=== PATIENT | female | born 1990 ===

== ENCOUNTER → 2017-07-23 | Outpatient (CLI) | payer OTHER ==
[~2017-07-23] MED LIST: ALBU90OI6 INH; DOCU100 PO; FLUSAL1005; IBUP800 PO; OXYACE5T PO
[2017-07-23 12:35] LABS: BASOPHILS ABSOLUTE AUTO 0.02 K/mm3 (0.00-0.23); BASOPHILS PERCENT AUTO 0 % (0-2); EOSINOPHILS PERCENT AUTO 3 % (0-6); Hematocrit 40.8 % (33.0-51.0); Hemoglobin 13.6 g/dL (11.5-16.0); IMMATURE GRAN ABSOLUTE AUTO 0.02 K/mm3 (0.00-0.10); IMMATURE GRAN PERCENT AUTO 0 % (0-1); LYMPHOCYTES ABSOLUTE AUTO 1.49 K/mm3 (0.84-5.20); LYMPHOCYTES PERCENT AUTO 21 % (21-46); MONOCYTES ABSOLUTE AUTO 0.46 K/mm3 (0.16-1.47); MONOCYTES PERCENT AUTO 6 % (4-13); Mean Corpuscular HGB 30.2 pg (26.0-34.0); Mean Corpuscular HGB Conc 33.3 g/dL (31.5-36.5); Mean Corpuscular Volume 91 fL (80-100); NEUTROPHILS ABSOLUTE AUTO 5.09 K/mm3 (1.96-9.15); NEUTROPHILS PERCENT AUTO 70 % (41-73); Platelet Count 268 K/mm3 (150-400); RDW Coefficient Variation 12.2 % (11.7-14.2); RDW Standard Deviation 40.1 fL (35.1-46.3); White Blood Cell Count 7.28 K/mm3 (4.00-11.30)
[2017-07-23 12:56] LABS: Source, Urine Clean Catch
[2017-07-23 13:34] LABS: Appearance, Urine Clear (Clear); Bilirubin, Urine Neg (Neg); Blood, Urine 1+ (Neg); Color, Urine Yellow (P-Yellow); Glucose Qualitative, Urine Neg (Neg); Ketones, Urine Neg (Neg); Leukocyte Esterase, Urine Neg (Neg); Nitrite, Urine Neg (Neg); Protein, Urine Neg (Neg); Specific Gravity, Urine 1.015 (1.003-1.022); Urobilinogen, Urine NORM (Normal)
[2017-07-23 13:46] LABS: Bacteria Few /hpf; Squamous Epithelial Cells Few /hpf (Few); White Blood Cells, Urine 0-2 /hpf (0-5)
== END ==
LOC: LAB SHORT 11:12 → OLS 11:12
PROVIDERS: Registered Nurse Community Health
DX: Z34.81 Encounter for supervision of other normal pregnancy, first trimester (principal)
CPT/HCPCS: 36415; 80055; 81001; 84443; 87086; 87389

== ENCOUNTER → 2017-08-02 | Outpatient (CLI) | payer OTHER ==
[2017-09-02 09:11] LABS: CHLAMYDIA TRACHOMATIS, NAA Negative (Negative); NEISSERIA GONORRHOEAE, NAA Negative (Negative)
== END ==
LOC: LAB 12:18 → LAB SHORT 12:18
PROVIDERS: Registered Nurse Community Health
DX: Z34.81 Encounter for supervision of other normal pregnancy, first trimester (principal)
CPT/HCPCS: 87491; 87591; G0123

== ENCOUNTER → 2017-12-21 | Outpatient (CLI) | payer OTHER ==
[2017-12-21 17:04] LABS: Hematocrit 33.6 % (33.0-51.0); Hemoglobin 11.1 g/dL (11.5-16.0)
== END ==
LOC: LAB UCHC 15:35 → LAB SHORT 15:35
PROVIDERS: Registered Nurse Community Health
DX: Z34.82 Encounter for supervision of other normal pregnancy, second trimester (principal)
CPT/HCPCS: 36415; 82950; 85014; 85018

== ENCOUNTER 2018-03-23 20:10 | Inpatient (IN) | payer OTHER ==
[~2018-03-23] VITALS: Ht 162.6 cm; Wt 98.6 kg
[2018-03-23 21:04] LABS: BASOPHILS ABSOLUTE AUTO 0.01 K/mm3 (0.00-0.23); BASOPHILS PERCENT AUTO 0 % (0-2); EOSINOPHILS ABSOLUTE AUTO 0.06 K/mm3 (0.00-0.68); EOSINOPHILS PERCENT AUTO 1 % (0-6); Hematocrit 39.2 % (33.0-51.0); Hemoglobin 12.8 g/dL (11.5-16.0); IMMATURE GRAN ABSOLUTE AUTO 0.03 K/mm3 (0.00-0.10); IMMATURE GRAN PERCENT AUTO 0 % (0-1); LYMPHOCYTES ABSOLUTE AUTO 1.26 K/mm3 (0.84-5.20); LYMPHOCYTES PERCENT AUTO 16 % (21-46); MONOCYTES ABSOLUTE AUTO 0.53 K/mm3 (0.16-1.47); MONOCYTES PERCENT AUTO 7 % (4-13); Mean Corpuscular HGB 28.2 pg (26.0-34.0); Mean Corpuscular HGB Conc 32.7 g/dL (31.5-36.5); Mean Corpuscular Volume 86 fL (80-100); Mean Platelet Volume 12.3 fL (9.1-12.4); NEUTROPHILS ABSOLUTE AUTO 5.84 K/mm3 (1.96-9.15); NEUTROPHILS PERCENT AUTO 76 % (41-73); Platelet Count 219 K/mm3 (150-400); RDW Coefficient Variation 13.8 % (11.7-14.2); RDW Standard Deviation 43.8 fL (35.1-46.3); Red Blood Cell Count 4.54 M/mm3 (3.80-5.20); White Blood Cell Count 7.73 K/mm3 (4.00-11.30)
[2018-03-25 05:37] LABS: BASOPHILS ABSOLUTE AUTO 0.03 K/mm3 (0.00-0.23); BASOPHILS PERCENT AUTO 0 % (0-2); EOSINOPHILS ABSOLUTE AUTO 0.03 K/mm3 (0.00-0.68); EOSINOPHILS PERCENT AUTO 0 % (0-6); Hematocrit 36.9 % (33.0-51.0); IMMATURE GRAN ABSOLUTE AUTO 0.03 K/mm3 (0.00-0.10); IMMATURE GRAN PERCENT AUTO 0 % (0-1); LYMPHOCYTES ABSOLUTE AUTO 1.51 K/mm3 (0.84-5.20); LYMPHOCYTES PERCENT AUTO 15 % (21-46); MONOCYTES ABSOLUTE AUTO 0.68 K/mm3 (0.16-1.47); MONOCYTES PERCENT AUTO 7 % (4-13); Mean Corpuscular HGB 28.4 pg (26.0-34.0); Mean Corpuscular HGB Conc 32.5 g/dL (31.5-36.5); Mean Corpuscular Volume 87 fL (80-100); Mean Platelet Volume 12.2 fL (9.1-12.4); NEUTROPHILS ABSOLUTE AUTO 7.62 K/mm3 (1.96-9.15); NEUTROPHILS PERCENT AUTO 77 % (41-73); Platelet Count 187 K/mm3 (150-400); RDW Standard Deviation 44.4 fL (35.1-46.3); Red Blood Cell Count 4.22 M/mm3 (3.80-5.20)
[2018-03-25] MEDS ORDERED: IBUP800 PO (13:16)
== END 2018-03-25 21:15 | disposition home or self-care (01) | DRG 807 ==
LOC: BC 20:10
PROVIDERS: Registered Nurse Community Health
PROC: 10E0XZZ Delivery of Products of Conception, External Approach (ICD-10-PCS; principal; 2018-03-24)
PROC: 0HQ9XZZ Repair Perineum Skin, External Approach (ICD-10-PCS; 2018-03-24)
PROC: 10907ZC Drainage of Amniotic Fluid, Therapeutic from Products of Conception, Via Natural or Artificial Opening (ICD-10-PCS; 2018-03-24)
PROC: 3E0P7VZ Introduction of Hormone into Female Reproductive, Via Natural or Artificial Opening (ICD-10-PCS; 2018-03-24)
PROC: 3E0234Z Introduction of Serum, Toxoid and Vaccine into Muscle, Percutaneous Approach (ICD-10-PCS; 2018-03-25)
DX: O48.0 Post-term pregnancy (principal); Z37.0 Single live birth; O70.0 First degree perineal laceration during delivery; Z3A.40 40 weeks gestation of pregnancy; Z23 Encounter for immunization
CPT/HCPCS: 36415; 82947; 85025; 90686; J1720; J1885; J2590; J7120

== ENCOUNTER 2018-05-13 06:04 | Day surgery (SDC) | payer OTHER ==
[~2018-05-13] VITALS: Ht 160 cm; Wt 92.7 kg
[~2018-05-13 06:04] MED LIST changes: +ALBU90OI61 INH; +FOLI1; +[UNRECOGNIZED DRUG - OTHER]
--- NOTE | 2018-05-13 10:00 | NUR ---
05/13/18 1000 [address] Morley 0856 CHECKED PT'S ROBERT AREA, NO ACTIVE BLEEDING, CLOT REMOVED. GAVE PT WIPES. DRSG ON ABD CLEAN/DRY. PT HAS NO C/O PAIN
== END 2018-05-13 09:40 | disposition home or self-care (01) ==
LOC: ORSCSDS 06:04
PROVIDERS: Obstetrics & Gynecology
PROC: 0UB74ZZ Excision of Bilateral Fallopian Tubes, Percutaneous Endoscopic Approach (ICD-10-PCS; principal; 2018-05-13 07:30)
DX: Z30.2 Encounter for sterilization (principal); N80.3 Endometriosis of pelvic peritoneum
CPT/HCPCS: 88302; J0330; J0690; J1100; J2250; J2405; J2710; J3010; J7120

== ENCOUNTER → 2024-10-24 | Outpatient (CLI) | payer OTHER ==
[~2024-10-24] MED LIST changes: +BUPR75 PO
== END | disposition home or self-care (01) ==
LOC: LAB 15:23 → LAB SHORT 15:23
DX: R30.0 Dysuria (principal)
CPT/HCPCS: 87077; 87086; 87186